=== PATIENT | female | born 2000 | race Caucasian/White ===

== ENCOUNTER 2025-04-18 22:20 | Emergency (ER) | payer BC, OTHER ==
[2025-04-19 00:20] LABS: Glucose, Urine (Dipstick) Normal (Negative); Leukocyte Negative (Negative); Protein, Urine (Dipstick) 15 mg/dl (Neg-Trace); Specific Gravity, Urine 1.010 (1.005-1.030)
[2025-04-19 00:41] LABS: CAUTI Indications for Culture Pregnancy
[2025-04-19 00:42] LABS: Bacteria/HPF 1+ HPF (None Seen); Urine Culture Reflex Yes Yes
[2025-04-19] MEDS ORDERED: Acetaminophen 500 MG TAB ONE (01:17)
[2025-04-19 02:11] LABS: #Basophils 0.06 10x3/uL (0.0-0.2); #Eosinophils 0.03 10x3/uL (0.0-0.5); #Monocytes 0.63 10x3/uL (0.0-1.1); #Neutrophils 5.39 10x3/uL (1.5-8.4); %Basophils 0.7 % (0.0-2.0); %Eosinophils 0.4 % (0.0-6.0); %Lymphocytes 28.2 % (18.0-47.0); %Monocytes 7.4 % (0.0-10.0); %Neutrophils 62.9 % (40.0-75.0); Hematocrit 37.7 % (34.9-44.5); Hemoglobin 12.9 g/dL (12.0-15.5); Mean Corpuscular Hemoglobin 29.9 pg (27.0-33.0); Mean Corpuscular Volume 87.3 fL (81.6-98.3); Platelet Count 274 10x3/uL (150-450); Red Blood Cell (RBC) Count 4.32 10x6/uL (3.90-5.03); White Blood Cell (WBC) Count 8.55 10x3/uL (3.5-10.5)
[2025-04-19 02:25] LABS: ALT (SGPT) 24 U/L (Less than 34); AST (SGOT) 28 U/L (11-34); Albumin 4.4 g/dL (3.1-4.5); Alkaline Phosphatase 53 U/L (40-110); Anion Gap 12 mmol/L (10-20); BUN (Urea Nitrogen) 10 mg/dL (7.0-18.7); Bilirubin, Total 0.4 mg/dL (0.3-1.2); Calc. Creatinine Clearance 0 mL/min (70-130); Calcium 9.6 mg/dL (7.8-10.44); Carbon Dioxide 24 mmol/L (22-29); Chloride 108 mmol/L (98-107); Globulin 2.9 g/dL (2.4-3.5); Glucose 99 mg/dL (70-105); Potassium 4.0 mmol/L (3.5-5.1); Sodium 140 mmol/L (136-145)
== END 2025-04-19 04:16 | disposition home or self-care (01) ==
LOC: CSHERS 22:20
DX: O20.0 Threatened abortion (principal); Z3A.01 Less than 8 weeks gestation of pregnancy
CPT/HCPCS: 36415; 76856; 80053; 81001; 84702; 85025; 86900; 86901; 87086